=== PATIENT | female | born 1990 | race Caucasian/White ===

== ENCOUNTER 2020-06-24 05:17 | Inpatient (IN) | payer OTHER ==
[~2020-06-24 05:17] MED LIST: Sodium Chloride 0.9% 10 ML Syringe FLUSH PRN
[2020-06-24] MEDS: Lactated Ringers 1,000 ML IV SCH ×2 (06:06→06:41)
[2020-06-24] MEDS ORDERED: Oxytocin/Lactated Ringers 10 UNIT/1,000 ML BAG IV SCH (07:00)
[2020-06-24] MEDS ORDERED: Metoclopramide 10 MG/2 ML SDV IVPUSH ONE (07:00)
[2020-06-24] MEDS ORDERED: Citric Acid/Sodium Citrate Solution 30 ML Cup PO ONE (07:00)
[2020-06-24] MEDS ORDERED: ceFAZolin 2 GM in Premix Bag 1 BAG IV ONE (07:00)
--- NOTE | 2020-06-24 07:04 | PCM.PREANE ---
Preanesthetic Assessment - Procedure Proposed Procedure: Repeat - Anesthesia/Transfusion/Family Hx Anesthesia History: Prior Anesthesia Reaction (with previous ) Type of Anesthesia Reaction: Excessive Itching, Excessive Shivering, Other (see below) (spinal headache ) Family History of Anesthesia Reaction: No Transfusion History: No Prior Transfusion(s) - Review of Systems General: No Symptoms Pulmonary: No Symptoms Cardiovascular: No Symptoms Gastrointestinal: Other (GERD) Neurological: No Symptoms Other: Reports: None (Nasal congestion, cough, post covid infection on June 06. ), Diabetes (Gestational, diet controlled. Spot checking blood glucose, doing well with management. ) - Physical Assessment NPO Status Date: 06/23/20 NPO Status Time: 22:30 Vital Signs: 98 117/78 77 18 96% Height: 1.6 m Weight: 98.43 kg ASA Class: 2 Mental Status: Alert & Oriented x3 Airway Class: Mallampati = 3 Dentition: Reports: Normal Dentition Thyro-Mental Finger Breadths: 2 Mouth Opening Finger Breadths: 3 ROM/Head Extension: Full Lungs: Clear to Auscultation, Normal Respiratory Effort Cardiovascular: Regular Rate, Regular Rhythm - Lab Values: Laboratory Last Values WBC 8.17 K/mm3 (3.98-10.04) 06/24/20 06:15 RBC 3.86 M/mm3 (3.98-5.22) L 06/24/20 06:15 Hgb 10.4 gm/dl (11.2-15.7) L 06/24/20 06:15 Hct 32.4 % (34.1-44.9) L 06/24/20 06:15 MCV 83.9 fl (79.4-94.8) 06/24/20 06:15 MCH 26.9 pg (25.6-32.2) 06/24/20 06:15 MCHC 32.1 g/dl (32.2-35.5) L 06/24/20 06:15 RDW Std Deviation 50.0 fL (36.4-46.3) H 06/24/20 06:15 Plt Count 199 K/mm3 (182-369) 06/24/20 06:15 MPV 9.6 fl (9.4-12.3) 06/24/20 06:15 Neut % (Auto) 69.0 % (34.0-71.1) 06/24/20 06:15 Lymph % (Auto) 22.4 % (19.3-51.7) 06/24/20 06:15 Sac % (Auto) 7.1 % (4.7-12.5) 06/24/20 06:15 Eos % (Auto) 1.2 (0.7-5.8) 06/24/20 06:15 Baso % (Auto) 0.1 % (0.1-1.2) 06/24/20 06:15 Neut # (Auto) 5.63 K/mm3 (1.56-6.13) 06/24/20 06:15 Lymph # (Auto) 1.83 K/mm3 (1.18-3.74) 06/24/20 06:15 Sac # (Auto) 0.58 K/mm3 (0.24-0.36) H 06/24/20 06:15 Eos # (Auto) 0.10 K/mm3 (0.04-0.36) 06/24/20 06:15 Baso # (Auto) 0.01 K/mm3 (0.01-0.08) 06/24/20 06:15 - Allergies Allergies/Adverse Reactions: Allergies Allergy/AdvReac Type Severity Reaction Status Date / Time egg Allergy Stomach Verified 06/24/20 06:30 Ache morphine Allergy Rash Verified 06/24/20 06:30 avicodo Allergy Stomach Uncoded 06/23/20 14:38 Ache - Acknowledgements Anesthesia Type Planned: Spinal Pt an Appropriate Candidate for the Planned Anesthesia: Yes Alternatives and Risks of Anesthesia Discussed w Pt/Guardian: Yes Pt/Guardian Understands and Agrees with Anesthesia Plan: Yes 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: Psychiatric History: Reports: Other (See Below) 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 Endocrine/Metabolic History: Reports: Diabetes, Gestational Hematologic History: Reports: Anemia - Past Surgical History HEENT Surgical History: Reports: Oral Surgery Other HEENT Surgeries/Procedures: wisdom teeth - SUBSTANCE USE Tobacco Use Status *Q: Never Tobacco User Tobacco Use Within Last Twelve Months: No Second Hand Smoke Exposure: No Recreational Drug Use History: No - HOME MEDS Home Medications: Home Meds Ascorbic Acid [Vitamin C] 500 mg PO DAILY 06/24/20 [History] Cholecalciferol (Vitamin D3) [Vitamin D3] 1,000 unit PO DAILY 06/24/20 [History] Ferrous Sulfate [Iron] 325 mg PO DAILY 06/24/20 [History] No122/Iron/Folic Acid [ Multi Tablet] 1 each PO DAILY 06/24/20 [History] Zinc 50 mg PO DAILY 06/24/20 [History] - CURRENT (IN HOUSE) MEDS Current Meds: Current Medications Cefazolin Sodium/Dextrose 2 gm (/ Premix) 50 mls @ 100 mls/hr IV ONETIME ONE Stop: 06/24/20 07:29 Oxytocin/Lactated Ringer's (Pitocin In Lr 10 Units/1,000 Ml) 10 unit in 1,000 mls @ 100 mls/hr IV ASDIRECTED DAVID; Protocol Lactated Ringer's (Ringers, Lactated) 1,000 mls @ 125 mls/hr IV ASDIRECTED DAVID Last Admin: 06/24/20 06:41 Dose: 125 mls/hr Documented by: Sodium Chloride (Saline Flush) 10 ml FLUSH ASDIRECTED PRN PRN Reason: Keep Vein Open Discontinued Medications Citric Acid/Sodium Citrate (Bicitra Solution) 30 ml PO ONETIME ONE Stop: 06/24/20 07:01 Metoclopramide HCl (Reglan) 10 mg IVPUSH ONETIME ONE Stop: 06/24/20 07:01
[2020-06-24] MEDS ORDERED: Oxytocin 10 Units/1 ML SDV ONE (07:07)
[2020-06-24] MEDS ORDERED: Morphine PF 10 MG/10 ML SDV ONE (07:07)
[2020-06-24] MEDS ORDERED: Lactated Ringers 2,000 ML ONE (07:07)
[2020-06-24] MEDS ORDERED: Ketorolac 30 MG/ML SDV ONE (07:07)
[2020-06-24] MEDS ORDERED: Ondansetron 4 MG/2 ML SDV ONE (07:07)
[2020-06-24] MEDS ORDERED: ceFAZolin 1 GM Vial ONE (07:07)
--- NOTE | 2020-06-24 07:07 | PCM.OPNOTE ---
- General Post-Op/Procedure Note Date of Surgery/Procedure: 06/24/20 Operative Procedure(s): Repeat low transverse Findings: Minimal scar tissue between the rectus and fascia. Moderate scarring between bladder and lower uterine segment. Baby Boy in vertex presentation. Weight of 9 lbs 1 oz. APGARS of 9 & 9. Pre Op Diagnosis: Hx of x2. GODMA1. Suspected macrosomia Post-Op Diagnosis: Same Anesthesia Technique: Spinal Primary Surgeon: Sabine Lanier Secondary Surgeon: Vinny De Los Santos Anesthesia Provider: Tari Laureano Reason Rose Grower Was Necessary: BMI of patient. Speed/safety of procedure Pathology: Cord blood collected. Placenta discarded. Fluid Replacement, Intraop: 2,200 Output, Urine Amount: 100 EBL in mLs: 700 Complications: None Condition: Good Free Text/Narrative:: The risks, benefits, indications, potential complications, and alternatives were explained to the patient and informed consent obtained. After induction of anesthesia, the patient was placed in a supine position and then draped and prepped in the usual sterile manner. A Pfannenstiel incision was made and carried down through the subcutaneous tissue to the fascia. Fascial incision was made and extended transversely. The fascia was from the underlying rectus tissue superiorly and inferiorly. The peritoneum was identified and entered. Peritoneal incision was extended longitudinally. The utero-vesical peritoneal reflection was incised transversely and the bladder flap was bluntly freed from the lower uterine segment. A low transverse uterine incision was made sharply with a scalpel and extended bluntly in a cephalocaudad direction. A baby boy was delivered from a vertex presentation with APGARS as above. After the umbilical cord was clamped and cut cord blood was obtained for evaluation. The placenta was removed intact and appeared normal. The uterus was exteriorized and cleared of clots. The uterine outline, tubes and ovaries appeared normal. The uterine incision was closed with running locked sutures of 0 Vicryl. Hemostasis was obtained with several interrupted sutures of 0 Vicryl placed in figure of eight fashion. The uterus was then placed back into the abdomen. The infracolic gutters were cleared of blood clots. The fascia was then reapproximated with running sutures of 0 Vicryl. The subcutaneous tissue was irrigated with sterile warm normal saline, hemostasis obtained with cautery. This layer was also closed with a running 0 Vicryl suture. The skin was reapproximated with running Subcuticular 4-0 Monocryl sutures. It was then sealed with Dermabond Instrument, sponge, and needle counts were correct prior the abdominal closure and at the conclusion of the case.
[2020-06-24] MEDS ORDERED: Bupivacaine 0.5% 30 ML SDV ONE (07:56)
[2020-06-24] MEDS ORDERED: Ketamine 500 mg/10 ML MDV ONE (07:56)
[2020-06-24] MEDS ORDERED: Midazolam 1 MG/ML 2 ML SDV ONE (07:57)
[2020-06-24] MEDS ORDERED: fentaNYL 100 MCG/2 ML SDV ONE (07:58)
[2020-06-24] MEDS ORDERED: diphenhydrAMINE 50 MG/ML SDV ONE (08:18)
--- NOTE | 2020-06-24 08:45 | PCM.POSTAN ---
POST ANESTHESIA ASSESSMENT - MENTAL STATUS Mental Status: Alert, Oriented - VITAL SIGNS Vital Signs: Last Vital Signs Temp Pulse 88 06/24/20 05:45 Resp 16 06/24/20 05:45 BP 117/89 06/24/20 05:45 Pulse Ox 97 06/24/20 05:45 0836 108/54 67 16 95% 98.3F - RESPIRATORY Respiratory Status: Respiratory Rate WNL, Airway Patent, O2 Saturation Stable - CARDIOVASCULAR CV Status: Pulse Rate WNL, Blood Pressure Stable - GASTROINTESTINAL GI Status: No Symptoms - PAIN Pain Score: 0 - POST OP HYDRATION Hydration Status: Adequate & Stable
[2020-06-24] MEDS ORDERED: fentaNYL 100 MCG/2 ML SDV IVPUSH PRN (08:48)
[2020-06-24] MEDS ORDERED: HYDROmorphone 0.5 MG/0.5 ML Syringe IVPUSH PRN (08:48)
[2020-06-24] MEDS ORDERED: Ondansetron 4 MG/2 ML SDV IVPUSH PRN (08:48)
[2020-06-24] MEDS ORDERED: Dextrose 5%-Lactated Ringers 1,000 ML IV SCH (10:25)
[2020-06-24] MEDS ORDERED: Naloxone 0.4 MG/ML SDV IVPUSH PRN (10:25)
[2020-06-24] MEDS ORDERED: Docusate Sodium 100 MG Cap PO PRN (10:25)
[2020-06-24] MEDS ORDERED: diphenhydrAMINE 50 MG/ML SDV IVPUSH PRN (10:25)
[2020-06-24] MEDS: Ketorolac 30 MG/ML SDV IVPUSH SCH ×2 (15:32→21:22)
[2020-06-24] MEDS ORDERED: Simethicone 80 MG Tab.Chew PO ONE (21:15)
[2020-06-25] MEDS: Ketorolac 30 MG/ML SDV IVPUSH SCH (02:52)
--- NOTE | 2020-06-25 06:57 | PCM.PNPP ---
- General Info Date of Service: 06/25/20 Functional Status: Reports: Pain Controlled, Tolerating Diet, Ambulating, Urinating - Review of Systems General: Reports: No Symptoms Pulmonary: Reports: No Symptoms Cardiovascular: Reports: No Symptoms Gastrointestinal: Reports: No Symptoms Genitourinary: Reports: No Symptoms Musculoskeletal: Reports: No Symptoms Neurological: Reports: No Symptoms - Patient Data Vital Signs - Most Recent: Last Vital Signs Temp 36.9 C 06/25/20 04:11 Pulse 76 06/25/20 04:11 Resp 15 06/25/20 04:11 BP 138/50 L 06/25/20 04:11 Pulse Ox 96 06/25/20 04:11 Weight - Most Recent: 98.43 kg I&O - Last 24 Hours: Intake & Output 06/24/20 06/24/20 06/25/20 14:59 22:59 06:59 Intake Total 3555 60 Output Total 250 950 600 Balance 3305 -890 -600 Lab Results - Last 24 Hours: Laboratory Results - last 24 hr 06/24/20 06/24/20 06/25/20 Range/Units 06:15 06:15 04:43 WBC 10.10 H (3.98-10.04) K/mm3 RBC 3.58 L (3.98-5.22) M/mm3 Hgb 9.5 L (11.2-15.7) gm/dl Hct 30.7 L (34.1-44.9) % MCV 85.8 (79.4-94.8) fl MCH 26.5 (25.6-32.2) pg MCHC 30.9 L (32.2-35.5) g/dl RDW Std Deviation 51.0 H (36.4-46.3) fL Plt Count 188 (182-369) K/mm3 MPV 10.0 (9.4-12.3) fl RPR Non-reactive (NONREACTIVE) Blood Type A POSITIVE Gel Antibody Screen Negative Med Orders - Current: Current Medications Diphenhydramine HCl (Benadryl) 25 mg IVPUSH Q6H PRN PRN Reason: Itching or Nausea Docusate Sodium (Colace) 100 mg PO Q12H PRN PRN Reason: Constipation Fentanyl (Sublimaze) 50 mcg IVPUSH Q5M PRN PRN Reason: Pain Hydromorphone HCl (Dilaudid) 0.5 mg IVPUSH Q10M PRN PRN Reason: Pain (severe 7-10) Ibuprofen (Motrin) 600 mg PO Q6H PRN PRN Reason: mild pain or fever Naloxone HCl (Narcan) 0.1 mg IVPUSH SEECOMMENT PRN PRN Reason: Respiratory Depression Ondansetron HCl (Zofran) 4 mg IVPUSH ONETIME PRN PRN Reason: Nausea/Vomiting Oxycodone/Acetaminophen (Percocet 325-5 Mg) 2 tab PO Q4H PRN PRN Reason: Pain (severe 7-10) Oxycodone/Acetaminophen (Percocet 325-5 Mg) 1 tab PO Q4H PRN PRN Reason: Pain (moderate 4-6) Simethicone (Simethicone) 80 mg PO TIDAC DAVID Discontinued Medications Bupivacaine HCl (Marcaine 0.5%) Confirm Administered Dose 30 ml .ROUTE .STK-MED ONE Stop: 06/24/20 07:57 Last Admin: 06/24/20 07:57 Dose: 17 ml Documented by: Cefazolin Sodium (Ancef) Confirm Administered Dose 2 gm .ROUTE .STK-MED ONE Stop: 06/24/20 07:08 Citric Acid/Sodium Citrate (Bicitra Solution) 30 ml PO ONETIME ONE Stop: 06/24/20 07:01 Last Admin: 06/24/20 07:31 Dose: 30 ml Documented by: Diphenhydramine HCl (Benadryl) Confirm Administered Dose 50 mg .ROUTE .STK-MED ONE Stop: 06/24/20 08:19 Fentanyl (Sublimaze) Confirm Administered Dose 100 mcg .ROUTE .STK-MED ONE Stop: 06/24/20 07:59 Cefazolin Sodium/Dextrose 2 gm (/ Premix) 50 mls @ 100 mls/hr IV ONETIME ONE Stop: 06/24/20 07:29 Last Admin: 06/24/20 21:17 Dose: Not Given Documented by: Oxytocin/Lactated Ringer's (Pitocin In Lr 10 Units/1,000 Ml) 10 unit in 1,000 mls @ 100 mls/hr IV ASDIRECTED DAVID; Protocol Lactated Ringer's (Ringers, Lactated) 1,000 mls @ 125 mls/hr IV ASDIRECTED DAVID Last Admin: 06/24/20 06:41 Dose: 125 mls/hr Documented by: Lactated Ringer's (Ringers, Lactated) Confirm Administered Dose 2,000 mls @ as directed .ROUTE .ST-MED ONE Stop: 06/24/20 07:08 Dextrose/Lactated Ringer's (Dextrose 5%-Lactated Ringers) 1,000 mls @ 125 mls/hr IV ASDIRECTED [facility] Stop: 06/24/20 18:24 Last Admin: 06/24/20 13:00 Dose: 125 mls/hr Documented by: Ketamine HCl (Ketalar) Confirm Administered Dose 500 mg .ROUTE .ST-MED ONE Stop: 06/24/20 07:57 Ketorolac Tromethamine (Toradol) Confirm Administered Dose 30 mg .ROUTE [facility] ONE Stop: 06/24/20 07:08 Ketorolac Tromethamine (Toradol) 30 mg IVPUSH Q6H [facility] Stop: 06/25/20 02:36 Last Admin: 06/25/20 02:52 Dose: 30 mg Documented by: Metoclopramide HCl (Reglan) 10 mg IVPUSH ONETIME ONE Stop: 06/24/20 07:01 Last Admin: 06/24/20 07:31 Dose: 10 mg Documented by: Midazolam HCl (Versed 1 Mg/Ml) Confirm Administered Dose 2 mg .ROUTE .[facility] ONE Stop: 06/24/20 07:58 Morphine Sulfate (Duramorph Pf) Confirm Administered Dose 0 mg .ROUTE .[facility] ONE Stop: 06/24/20 07:08 Ondansetron HCl (Zofran) Confirm Administered Dose 4 mg .ROUTE .ST-MED ONE Stop: 06/24/20 07:08 Oxytocin (Pitocin) Confirm Administered Dose 20 unit .ROUTE .ST-MED ONE Stop: 06/24/20 07:08 Simethicone (Simethicone) 80 mg PO ONETIME ONE Stop: 06/24/20 21:16 Last Admin: 06/24/20 21:23 Dose: 80 mg Documented by: Sodium Chloride (Saline Flush) 10 ml FLUSH ASDIRECTED PRN PRN Reason: Keep Vein Open - Infant Interaction Disposition, : [place] in Room with Family Interaction: Holding Infant Feeding: Attempted ; Nursed Fair/Poor, Difficulty with Latch-on Support Person: - Recovery Exam Fundal Tone: Firm Fundal Level: At Umbilicus Fundal Placement: Midline Lochia Amount: Small Lochia Color: Rubra/Red Perineum Description: Intact, Minimal Bruising/Swelling Bladder Status: Voiding Urinary Elimination: Voided - Exam General: Alert, Oriented, Cooperative Lungs: Clear to Auscultation, Normal Respiratory Effort Cardiovascular: Regular Rate, Regular Rhythm GI/Abdominal Exam: Soft, Tender (appropriate ) Extremities: Normal Inspection Skin: Warm, Dry, Intact Wound/Incisions: Healing Well, No Drainage - Problem List & Annotations (1) 39 weeks gestation of SNOMED Code(s): 53549462 Code(s): Z3A.39 - 39 WEEKS GESTATION OF Status: Acute Current Visit: Yes (2) S/P repeat low transverse SNOMED Code(s): 648094400, 49501244, 564170191, 311661865, 534556262 Code(s): Z98.891 - HISTORY OF UTERINE SCAR FROM PREVIOUS SURGERY Status: Acute Current Visit: Yes - Problem List Review Problem List Initiated/Reviewed/Updated: Yes - My Orders Last 24 Hours: My Active Orders 06/24/20 10:25 Acetaminophen/oxyCODONE [Percocet 325-5 MG] 1 tab PO Q4H PRN Acetaminophen/oxyCODONE [Percocet 325-5 MG] 2 tab PO Q4H PRN Docusate Sodium [Colace] 100 mg PO Q12H PRN Naloxone [Narcan] 0.1 mg IVPUSH SEECOMMENT PRN diphenhydrAMINE [Benadryl] 25 mg IVPUSH Q6H PRN 06/24/20 10:25 Activity as Tolerated [RC] .Routine Antiembolic Devices [RC] PER UNIT ROUTINE Communication Order [RC] PER UNIT ROUTINE Intake and Output [RC] Q4H Notify Provider Intake and Out [RC] ASDIRECTED RT Incentive Spirometry [RC] Q2HWA Vital Signs [RC] PER UNIT ROUTINE Assess Lochia [WOMSER] Per Unit Routine Assess Uterine Involution [WOMSER] Per Unit Routine Breast Pump [WOMSER] Per Unit Routine Peripheral IV Discontinue [OM.PC] Routine Sequential Compression Device [OM.PC] Per Unit Routine 06/24/20 Lunch Regular Diet [DIET] 06/25/20 07:00 Simethicone 80 mg PO TIDAC 06/25/20 08:35 Urinary Catheter Removal [RC] Per Unit Routine 06/25/20 08:36 Ibuprofen [Motrin] 600 mg PO Q6H PRN - Assessment Assessment:: POD#1 - Plan Plan:: * Routine cares * Breast feeding * Discharge home in 1-2 days
--- NOTE | 2020-06-25 07:52 | PCM48HPAN ---
Post Anesthesia Note - EVALUATION WITHIN 48HRS OF ANESTHETIC Vital Signs in Normal Range: Yes Patient Participated in Evaluation: Yes Respiratory Function Stable: Yes Airway Patent: Yes Cardiovascular Function Stable: Yes Hydration Status Stable: Yes Pain Control Satisfactory: Yes Nausea and Vomiting Control Satisfactory: Yes Mental Status Recovered: Yes Vital Signs: Last Vital Signs Temp 36.9 C 06/25/20 04:11 Pulse 76 06/25/20 04:11 Resp 15 06/25/20 04:11 BP 138/50 L 06/25/20 04:11 Pulse Ox 96 06/25/20 04:11 - COMMENTS/OBSERVATIONS Free Text/Narrative:: no anesthesia complications noted
[2020-06-25] MEDS: Ibuprofen 600 MG Tab PO PRN ×3 (08:59→20:34)
[2020-06-25] MEDS: Simethicone 80 MG Tab.Chew PO SCH ×3 (08:59→16:52)
[2020-06-25] MEDS ORDERED: Acetaminophen/HYDROcodone 325-5 MG Tab PO PRN ×2 (09:52→09:53)
[2020-06-25] MEDS: Acetaminophen/oxyCODONE 325-5 MG Tab PO PRN ×4 (11:17→21:16)
[2020-06-25] MEDS: Benzocaine/Cetylpyridinium/Menthol Lozenge MUCMEM PRN (11:18)
[2020-06-26] MEDS: Acetaminophen/oxyCODONE 325-5 MG Tab PO PRN ×3 (01:32→14:37)
--- NOTE | 2020-06-26 05:41 | PCM.PNPP ---
- General Info Date of Service: 06/26/20 Functional Status: Reports: Pain Controlled, Tolerating Diet, Ambulating, Urinating - Review of Systems General: Reports: No Symptoms Pulmonary: Reports: No Symptoms Cardiovascular: Reports: No Symptoms Gastrointestinal: Reports: Abdominal Pain (managed with medications ) Genitourinary: Reports: No Symptoms Musculoskeletal: Reports: No Symptoms Neurological: Reports: No Symptoms - Patient Data Vital Signs - Most Recent: Last Vital Signs Temp 36.2 C 06/26/20 04:13 Pulse 68 06/26/20 04:13 Resp 14 06/26/20 04:13 BP 118/64 06/26/20 04:13 Pulse Ox 96 06/26/20 04:13 Weight - Most Recent: 98.43 kg I&O - Last 24 Hours: Intake & Output 06/25/20 06/25/20 06/26/20 14:59 22:59 06:59 Output Total 400 Balance -400 Med Orders - Current: Current Medications Hydrocodone Bitart/Acetaminophen ([place] 325-5 Mg) 2 tab PO Q4H PRN PRN Reason: Pain Hydrocodone Bitart/Acetaminophen ([place] 325-5 Mg) 1 tab PO Q4H PRN PRN Reason: Pain Benzocaine/Menthol (Cepacol Sore Throat) 1 lozenge MUCMEM ASDIRECTED PRN PRN Reason: Sore Throat Last Admin: 06/25/20 11:18 Dose: 1 lozenge Documented by: Diphenhydramine HCl (Benadryl) 25 mg IVPUSH Q6H PRN PRN Reason: Itching or Nausea Docusate Sodium (Colace) 100 mg PO Q12H PRN PRN Reason: Constipation Last Admin: 06/25/20 20:35 Dose: 100 mg Documented by: Fentanyl (Sublimaze) 50 mcg IVPUSH Q5M PRN PRN Reason: Pain Hydromorphone HCl (Dilaudid) 0.5 mg IVPUSH Q10M PRN PRN Reason: Pain (severe 7-10) Ibuprofen (Motrin) 600 mg PO Q6H PRN PRN Reason: mild pain or fever Last Admin: 06/25/20 20:34 Dose: 600 mg Documented by: Naloxone HCl (Narcan) 0.1 mg IVPUSH SEECOMMENT PRN PRN Reason: Respiratory Depression Ondansetron HCl (Zofran) 4 mg IVPUSH ONETIME PRN PRN Reason: Nausea/Vomiting Oxycodone/Acetaminophen (Percocet 325-5 Mg) 2 tab PO Q4H PRN PRN Reason: Pain (severe 7-10) Last Admin: 06/26/20 01:32 Dose: 2 tab Documented by: Oxycodone/Acetaminophen (Percocet 325-5 Mg) 1 tab PO Q4H PRN PRN Reason: Pain (moderate 4-6) Last Admin: 06/25/20 13:03 Dose: 1 tab Documented by: Simethicone (Simethicone) 80 mg PO TIDAC DAVID Last Admin: 06/25/20 16:52 Dose: 80 mg Documented by: Discontinued Medications Bupivacaine HCl (Marcaine 0.5%) Confirm Administered Dose 30 ml .ROUTE .STK-MED ONE Stop: 06/24/20 07:57 Last Admin: 06/24/20 07:57 Dose: 17 ml Documented by: Cefazolin Sodium (Ancef) Confirm Administered Dose 2 gm .ROUTE .STK-MED ONE Stop: 06/24/20 07:08 Citric Acid/Sodium Citrate (Bicitra Solution) 30 ml PO ONETIME ONE Stop: 06/24/20 07:01 Last Admin: 06/24/20 07:31 Dose: 30 ml Documented by: Diphenhydramine HCl (Benadryl) Confirm Administered Dose 50 mg .ROUTE .STK-MED ONE Stop: 06/24/20 08:19 Fentanyl (Sublimaze) Confirm Administered Dose 100 mcg .ROUTE .STK-MED ONE Stop: 06/24/20 07:59 Cefazolin Sodium/Dextrose 2 gm (/ Premix) 50 mls @ 100 mls/hr IV ONETIME ONE Stop: 06/24/20 07:29 Last Admin: 06/24/20 21:17 Dose: Not Given Documented by: Oxytocin/Lactated Ringer's (Pitocin In Lr 10 Units/1,000 Ml) 10 unit in 1,000 mls @ 100 mls/hr IV ASDIRECTED [facility]; Protocol Lactated Ringer's (Ringers, Lactated) 1,000 mls @ 125 mls/hr IV ASDIRECTED [facility] Last Admin: 06/24/20 06:41 Dose: 125 mls/hr Documented by: Lactated Ringer's (Ringers, Lactated) Confirm Administered Dose 2,000 mls @ as directed .ROUTE .STK-MED ONE Stop: 06/24/20 07:08 Dextrose/Lactated Ringer's (Dextrose 5%-Lactated Ringers) 1,000 mls @ 125 mls/hr IV ASDIRECTED [facility] Stop: 06/24/20 18:24 Last Admin: 06/24/20 13:00 Dose: 125 mls/hr Documented by: Ketamine HCl (Ketalar) Confirm Administered Dose 500 mg .ROUTE .STK-MED ONE Stop: 06/24/20 07:57 Ketorolac Tromethamine (Toradol) Confirm Administered Dose 30 mg .ROUTE .STK-MED ONE Stop: 06/24/20 07:08 Ketorolac Tromethamine (Toradol) 30 mg IVPUSH Q6H [facility] Stop: 06/25/20 02:36 Last Admin: 06/25/20 02:52 Dose: 30 mg Documented by: Metoclopramide HCl (Reglan) 10 mg IVPUSH ONETIME ONE Stop: 06/24/20 07:01 Last Admin: 06/24/20 07:31 Dose: 10 mg Documented by: Midazolam HCl (Versed 1 Mg/Ml) Confirm Administered Dose 2 mg .ROUTE .STK-MED ONE Stop: 06/24/20 07:58 Morphine Sulfate (Duramorph Pf) Confirm Administered Dose 0 mg .ROUTE .STK-MED ONE Stop: 06/24/20 07:08 Ondansetron HCl (Zofran) Confirm Administered Dose 4 mg .ROUTE .STK-MED ONE Stop: 06/24/20 07:08 Oxytocin (Pitocin) Confirm Administered Dose 20 unit .ROUTE .STK-MED ONE Stop: 06/24/20 07:08 Simethicone (Simethicone) 80 mg PO ONETIME ONE Stop: 06/24/20 21:16 Last Admin: 06/24/20 21:23 Dose: 80 mg Documented by: Sodium Chloride (Saline Flush) 10 ml FLUSH ASDIRECTED PRN PRN Reason: Keep Vein Open - Infant Interaction Infant Disposition, : in Room with Family Interaction: Holding Infant Infant Feeding: Attempted ; Nursed Fair/Poor, Difficulty with Latch-on Support Person: - Recovery Exam Fundal Tone: Firm Fundal Level: 1 Fingerbreadths Below Umbilicus Fundal Placement: Right Lochia Amount: Small Lochia Color: Rubra/Red Perineum Description: Intact, Minimal Bruising/Swelling Bladder Status: Voiding Urinary Elimination: Voided - Exam General: Alert, Oriented, Cooperative Lungs: Clear to Auscultation, Normal Respiratory Effort Cardiovascular: Regular Rate, Regular Rhythm GI/Abdominal Exam: Soft, Non-Tender Extremities: Normal Inspection Skin: Warm, Dry, Intact Wound/Incisions: Healing Well, No Drainage - Problem List & Annotations (1) 39 weeks gestation of SNOMED Code(s): 37706303 Code(s): Z3A.39 - 39 WEEKS GESTATION OF Status: Acute (2) S/P repeat low transverse SNOMED Code(s): 804060010, 60495596, 730218912, 558859229, 286243404 Code(s): Z98.891 - HISTORY OF UTERINE SCAR FROM PREVIOUS SURGERY Status: Acute (3) Gestational diabetes SNOMED Code(s): 54233824 Code(s): O24.419 - GESTATIONAL DIABETES MELLITUS IN , UNSP CONTROL Status: Acute Qualifiers: Gestational diabetes mellitus control: diet-controlled Trimester: third trimester Qualified Code(s): O24.410 - Gestational diabetes mellitus in , diet controlled - Problem List Review Problem List Initiated/Reviewed/Updated: Yes - My Orders Last 24 Hours: My Active Orders 06/25/20 07:00 Simethicone 80 mg PO TIDAC 06/25/20 08:36 Ibuprofen [Motrin] 600 mg PO Q6H PRN 06/25/20 09:52 Acetaminophen/HYDROcodone [[place] 325-5 MG] 2 tab PO Q4H PRN 06/25/20 09:53 Acetaminophen/HYDROcodone [[place] 325-5 MG] 1 tab PO Q4H PRN 06/25/20 09:54 Benzocaine/Cetylpyrd/Menthol [Cepacol Sore Throat] 1 lozenge MUCMEM ASDIRECTED PRN - Assessment Assessment:: POD#2 - Plan Plan:: * Routine cares * Breast feeding * Discharge home today
[2020-06-26] MEDS: Simethicone 80 MG Tab.Chew PO SCH ×2 (06:23→10:32)
[2020-06-26] MEDS: Benzocaine/Cetylpyridinium/Menthol Lozenge MUCMEM PRN (10:38)
--- NOTE | 2020-06-26 18:27 | PCM.DCSUM1 ---
Discharge Summary - Discharge Data Discharge Date: 06/26/20 Discharge Disposition: Home, Self-Care 01 Condition: Good - Referral to Home Health Primary Care Physician: Sabine Lanier MD - Discharge Diagnosis/Problem(s) (1) 39 weeks gestation of SNOMED Code(s): 56182908 ICD Code: Z3A.39 - 39 WEEKS GESTATION OF Status: Acute (2) S/P repeat low transverse SNOMED Code(s): 627635472, [id number], 848642008, [id number], 394350298 ICD Code: Z98.891 - HISTORY OF UTERINE SCAR FROM PREVIOUS SURGERY Status: Acute (3) Gestational diabetes SNOMED Code(s): 08300356 ICD Code: O24.419 - GESTATIONAL DIABETES MELLITUS IN , UNSP CONTROL Status: Acute Qualifiers: Gestational diabetes mellitus control: diet-controlled Trimester: third trimester Qualified Code(s): O24.410 - Gestational diabetes mellitus in , diet controlled - Patient Summary/Data Operative Procedure(s) Performed: Repeat low transverse Complications: None Consults: None Recommended Follow-up Testing/Procedures: Follow up in 3 weeks for check Hospital Course: 30 y/o woman admitted for planned RLTCS. This was uncomplicated. See procedure note. did well and was discharged home on PPD#2 - Patient Instructions Diet: Regular Diet as Tolerated Activity: No Lifting Over 10 Pounds Activity, Other: Pelvic rest for 6 weeks Driving: Do Not Drive Showering/Bathing: May Shower, No Tub Bathing/Swimming Wound/Incision Care: Keep Operative Site/Wound Site Clean and Dry Notify Provider of: Fever, Increased Pain, Swelling and Redness, Drainage - Discharge Plan *PRESCRIPTION DRUG MONITORING PROGRAM REVIEWED*: No *COPY OF PRESCRIPTION DRUG MONITORING REPORT IN PATIENT BETTINA: No Prescriptions/Med Rec: Acetaminophen/oxyCODONE [Percocet 325-5 MG] 1 - 2 tab PO Q6HR PRN #25 tab PRN Reason: Pain Home Medications: Home Meds No122/Iron/Folic Acid [ Multi Tablet] 1 each PO DAILY 06/24/20 [History] Docusate Sodium [Colace] 100 mg PO Q12H PRN cap 06/25/20 [Rx] Ibuprofen [Motrin] 600 mg PO Q6H PRN tablet 06/25/20 [Rx] Acetaminophen/oxyCODONE [Percocet 325-5 MG] 1 - 2 tab PO Q6HR PRN #25 tab 06/26/20 [Rx] Patient Handouts: Care After Delivery Referrals: Sabine Lanier MD [Primary Care Provider] - (3 weeks for check ) - Discharge Summary/Plan Comment DC Time >30 min.: No - Patient Data Vitals - Most Recent: Last Vital Signs Temp 36.1 C 06/26/20 09:25 Pulse 84 06/26/20 09:25 Resp 14 06/26/20 09:25 BP 131/78 06/26/20 09:25 Pulse Ox 96 06/26/20 09:25 Weight - Most Recent: 98.43 kg I&O - Last 24 hours: Intake & Output 06/26/20 06/26/20 06/26/20 06:59 14:59 22:59 Intake Total 180 Balance 180 Med Orders - Current: Current Medications Discontinued Medications Hydrocodone Bitart/Acetaminophen ([place] 325-5 Mg) 2 tab PO Q4H PRN PRN Reason: Pain Last Admin: 06/26/20 10:31 Dose: 2 tab Documented by: Hydrocodone Bitart/Acetaminophen ([place] 325-5 Mg) 1 tab PO Q4H PRN PRN Reason: Pain Benzocaine/Menthol (Cepacol Sore Throat) 1 lozenge MUCMEM ASDIRECTED PRN PRN Reason: Sore Throat Last Admin: 06/26/20 10:38 Dose: 1 lozenge Documented by: Bupivacaine HCl (Marcaine 0.5%) Confirm Administered Dose 30 ml .ROUTE .STK-MED ONE Stop: 06/24/20 07:57 Last Admin: 06/24/20 07:57 Dose: 17 ml Documented by: Cefazolin Sodium (Ancef) Confirm Administered Dose 2 gm .ROUTE .STK-MED ONE Stop: 06/24/20 07:08 Citric Acid/Sodium Citrate (Bicitra Solution) 30 ml PO ONETIME ONE Stop: 06/24/20 07:01 Last Admin: 06/24/20 07:31 Dose: 30 ml Documented by: Diphenhydramine HCl (Benadryl) Confirm Administered Dose 50 mg .ROUTE .STK-MED ONE Stop: 06/24/20 08:19 Diphenhydramine HCl (Benadryl) 25 mg IVPUSH Q6H PRN PRN Reason: Itching or Nausea Docusate Sodium (Colace) 100 mg PO Q12H PRN PRN Reason: Constipation Last Admin: 06/25/20 20:35 Dose: 100 mg Documented by: Fentanyl (Sublimaze) Confirm Administered Dose 100 mcg .ROUTE .STK-MED ONE Stop: 06/24/20 07:59 Fentanyl (Sublimaze) 50 mcg IVPUSH Q5M PRN PRN Reason: Pain Hydromorphone HCl (Dilaudid) 0.5 mg IVPUSH Q10M PRN PRN Reason: Pain (severe 7-10) Cefazolin Sodium/Dextrose 2 gm (/ Premix) 50 mls @ 100 mls/hr IV ONETIME ONE Stop: 06/24/20 07:29 Last Admin: 06/24/20 21:17 Dose: Not Given Documented by: Oxytocin/Lactated Ringer's (Pitocin In Lr 10 Units/1,000 Ml) 10 unit in 1,000 mls @ 100 mls/hr IV ASDIRECTED [facility]; Protocol Lactated Ringer's (Ringers, Lactated) 1,000 mls @ 125 mls/hr IV ASDIRECTED [facility] Last Admin: 06/24/20 06:41 Dose: 125 mls/hr Documented by: Lactated Ringer's (Ringers, Lactated) Confirm Administered Dose 2,000 mls @ as directed .ROUTE .STK-MED ONE Stop: 06/24/20 07:08 Dextrose/Lactated Ringer's (Dextrose 5%-Lactated Ringers) 1,000 mls @ 125 mls/hr IV ASDIRECTED [facility] Stop: 06/24/20 18:24 Last Admin: 06/24/20 13:00 Dose: 125 mls/hr Documented by: Ibuprofen (Motrin) 600 mg PO Q6H PRN PRN Reason: mild pain or fever Last Admin: 06/25/20 20:34 Dose: 600 mg Documented by: Ketamine HCl (Ketalar) Confirm Administered Dose 500 mg .ROUTE .STK-MED ONE Stop: 06/24/20 07:57 Ketorolac Tromethamine (Toradol) Confirm Administered Dose 30 mg .ROUTE .STK-MED ONE Stop: 06/24/20 07:08 Ketorolac Tromethamine (Toradol) 30 mg IVPUSH Q6H DAVID Stop: 06/25/20 02:36 Last Admin: 06/25/20 02:52 Dose: 30 mg Documented by: Metoclopramide HCl (Reglan) 10 mg IVPUSH ONETIME ONE Stop: 06/24/20 07:01 Last Admin: 06/24/20 07:31 Dose: 10 mg Documented by: Midazolam HCl (Versed 1 Mg/Ml) Confirm Administered Dose 2 mg .ROUTE .STK-MED ONE Stop: 06/24/20 07:58 Morphine Sulfate (Duramorph Pf) Confirm Administered Dose 0 mg .ROUTE .STK-MED ONE Stop: 06/24/20 07:08 Naloxone HCl (Narcan) 0.1 mg IVPUSH SEECOMMENT PRN PRN Reason: Respiratory Depression Ondansetron HCl (Zofran) Confirm Administered Dose 4 mg .ROUTE .STK-MED ONE Stop: 06/24/20 07:08 Ondansetron HCl (Zofran) 4 mg IVPUSH ONETIME PRN PRN Reason: Nausea/Vomiting Oxycodone/Acetaminophen (Percocet 325-5 Mg) 2 tab PO Q4H PRN PRN Reason: Pain (severe 7-10) Last Admin: 06/26/20 14:37 Dose: 2 tab Documented by: Oxycodone/Acetaminophen (Percocet 325-5 Mg) 1 tab PO Q4H PRN PRN Reason: Pain (moderate 4-6) Last Admin: 06/25/20 13:03 Dose: 1 tab Documented by: Oxytocin (Pitocin) Confirm Administered Dose 20 unit .ROUTE .STK-MED ONE Stop: 06/24/20 07:08 Simethicone (Simethicone) 80 mg PO TIDAC DAVID Last Admin: 06/26/20 10:32 Dose: 80 mg Documented by: Simethicone (Simethicone) 80 mg PO ONETIME ONE Stop: 06/24/20 21:16 Last Admin: 06/24/20 21:23 Dose: 80 mg Documented by: Sodium Chloride (Saline Flush) 10 ml FLUSH ASDIRECTED PRN PRN Reason: Keep Vein Open
== END 2020-06-26 15:25 | disposition home or self-care (01) | DRG 788 ==
LOC: JD.OB 05:17
PROVIDERS: ADMIT Obstetrics & Gynecology; ATTEND Obstetrics & Gynecology
PROC: 10D00Z1 Extraction of Products of Conception, Low, Open Approach (ICD-10-PCS; principal; 2020-06-24)
DX: O34.211 Maternal care for low transverse scar from previous cesarean delivery (principal); Z37.0 Single live birth; O24.420 Gestational diabetes mellitus in childbirth, diet controlled; Z3A.39 39 weeks gestation of pregnancy; Z90.49 Acquired absence of other specified parts of digestive tract
CPT/HCPCS: 01961; 36415; 59025; 85025; 85027; 86592; 86850; 86900; 86901; A9270-GY; J0690; J1200; J1885; J2250; J2270; J2405; J2590; J2765; J3010; J3490; J7120; J7121

== ENCOUNTER 2021-09-22 18:49 | Inpatient (IN) | payer SELFPAY ==
[2021-09-22] MEDS ORDERED: HYDROmorphone 0.5 MG/0.5 ML Syringe IVPUSH ONE ×3 (21:18→22:49)
[2021-09-22] MEDS ORDERED: Sodium Chloride 0.9% 1,000 ML IV STA ×3 (21:18→22:29)
[2021-09-22] MEDS ORDERED: Ondansetron 4 MG/2 ML SDV IVPUSH ONE (21:18)
[2021-09-22] MEDS: Sodium Chloride 0.9% 10 ML Syringe FLUSH PRN ×2 (21:39→22:08)
[2021-09-22] MEDS ORDERED: Sodium Chloride 0.9% 10 ML SDV FLUSH ONE (22:08)
[2021-09-22] MEDS ORDERED: Iopamidol 612 MG/ML 100 ML Bottle IVPUSH ONE (22:08)
[2021-09-22] MEDS ORDERED: HYDROmorphone 0.5 MG/0.5 ML Syringe IVPUSH PRN (23:13)
[2021-09-22] MEDS ORDERED: Ondansetron 4 MG in Sodium Chloride 0.9% 50 ML IV PRN (23:13)
[2021-09-22] MEDS ORDERED: Ondansetron 4 MG/2 ML SDV IVPUSH PRN (23:18)
[2021-09-22] MEDS ORDERED: Piperacillin/Tazobactam 4.5 GM in Sodium Chloride 0.9% 100 ML IV ONE (23:30)
[2021-09-23] MEDS: Lactated Ringers 1,000 ML IV SCH ×3 (00:53→20:32)
[2021-09-23] MEDS: HYDROmorphone 0.5 MG/0.5 ML Syringe IVPUSH PRN ×3 (01:05→07:57)
[2021-09-23] MEDS ORDERED: HYDROmorphone 0.5 MG/0.5 ML Syringe IVPUSH PRN (08:13)
[2021-09-23] MEDS: Piperacillin/Tazobactam 4.5 GM in Sodium Chloride 0.9% 100 ML IV SCH ×2 (08:19→15:43)
[2021-09-23] MEDS: Acetaminophen 325 MG Tab PO SCH ×2 (10:20→21:03)
[2021-09-23] MEDS: oxyCODONE 5 MG Tab PO PRN ×2 (10:32→20:56)
[2021-09-24] MEDS: Piperacillin/Tazobactam 4.5 GM in Sodium Chloride 0.9% 100 ML IV SCH ×5 (00:01→23:47)
[2021-09-24] MEDS: oxyCODONE 5 MG Tab PO PRN ×3 (03:42→21:53)
[2021-09-24] MEDS: Lactated Ringers 1,000 ML IV SCH (06:28)
[2021-09-24] MEDS: Acetaminophen 325 MG Tab PO SCH (08:27)
[2021-09-24] MEDS: Dextrose 5%-0.45% NaCl 1,000 ML IV SCH (08:28)
[2021-09-25] MEDS: Dextrose 5%-0.45% NaCl 1,000 ML IV SCH (05:17)
[2021-09-25] MEDS: Piperacillin/Tazobactam 4.5 GM in Sodium Chloride 0.9% 100 ML IV SCH (07:56)
[2021-09-25] MEDS: Acetaminophen 325 MG Tab PO SCH (08:02)
[2021-09-25] MEDS ORDERED: Levofloxacin 750 MG Tab PO SCH (16:00)
[2021-09-25] MEDS ORDERED: metroNIDAZOLE 500 MG Tab PO SCH (16:00)
== END 2021-09-25 14:30 | disposition home or self-care (01) | DRG 392 ==
LOC: JD.ED 18:49 → JD.MS 23:10
PROVIDERS: ADMIT Surgery; ATTEND Surgery
DX: K57.20 Diverticulitis of large intestine with perforation and abscess without bleeding (principal); D64.9 Anemia, unspecified; Z79.899 Other long term (current) drug therapy; Z88.5 Allergy status to narcotic agent; Z91.012 Allergy to eggs; Z91.018 Allergy to other foods; Z20.822 Contact with and (suspected) exposure to COVID-19
CPT/HCPCS: 36415; 74018; 74018-26; 74177; 74177-26; 80048; 80053; 81001; 84703; 85025; 86140; 96374; 96375; 96376; 99285; 99285-25; A9270-GY; J1170; J2405; J2543; J3490; J7030; J7042; J7120; Q9967; U0002